=== PATIENT | female | born 1985 | race Caucasian/White ===

== ENCOUNTER 2025-02-26 09:33 | Emergency (ER) | payer OTHER ==
[~2025-02-26] VITALS: Ht 170.2 cm; Wt 87.8 kg
[2025-02-26] MEDS ORDERED: HYDR-4517 PO (09:49)
[2025-02-26] MEDS ORDERED: PROTPAK PO (09:49)
[2025-02-26] MEDS ORDERED: LISI10TA22 PO (09:49)
[2025-02-26] MEDS: KETOROLAC 30 MG/ML 1 ML VIAL IV ONE (12:52)
[2025-02-26] MEDS: LIDOCAINE 5% PATCH TD ONE (12:52)
[2025-02-26] MEDS: MORPHINE 4 MG/ML 1 ML VIAL IV ONE (14:04)
[2025-02-26 14:11] VITALS: BP 122/76; TEMP 97
[2025-02-26] MEDS ORDERED: PERC5TAB12 PO (14:21)
[2025-02-26 14:41] VITALS: O2SAT 99
== END 2025-02-26 14:43 | disposition home or self-care (01) ==
LOC: M ED 09:33
DX: M54.50 Low back pain, unspecified (principal); I10 Essential (primary) hypertension; K21.9 Gastro-esophageal reflux disease without esophagitis; Z88.8 Allergy status to other drugs, medicaments and biological substances
CPT/HCPCS: 96374; 96375; 99284; J1885